=== PATIENT | female | born 1970 | race Caucasian/White ===

== ENCOUNTER → 2019-08-21 | Outpatient (CLI) | payer OTHER ==
[2019-08-21 20:01] LABS: Bilirubin, Urine Neg (Neg); Blood, Urine 1+ (Neg); Glucose Qualitative, Urine Neg (Neg); Ketones, Urine Neg (Neg); Leukocyte Esterase, Urine 3+ (Neg); Nitrite, Urine Neg (Neg); Protein, Urine Neg (Neg); Urobilinogen, Urine NORM (Normal); pH, Urine 6.5 (5.0-8.0)
[2019-08-21 20:12] LABS: Appearance, Urine Hazy (Clear); Color, Urine Yellow (P-Yellow)
[2019-08-21 20:13] LABS: Bacteria Mod /hpf; Squamous Epithelial Cells Mod /hpf (Few); Yeast/Fungi Urine Mod /hpf
== END | disposition home or self-care (01) ==
LOC: LAB 18:47 → LAB SHORT 18:47
PROVIDERS: Registered Nurse
DX: R31.21 Asymptomatic microscopic hematuria (principal)
CPT/HCPCS: 81001; 87086

== ENCOUNTER → 2019-08-28 | Outpatient (CLI) | payer SELFPAY | END | disposition home or self-care (01) | LOC: LAB 19:12 → LAB SHORT 19:12 | DX: R35.0 Frequency of micturition (principal) | CPT/HCPCS: 87086 ==

== ENCOUNTER 2020-09-29 10:30 | Day surgery (SDC) | payer OTHER ==
[~2020-09-29] VITALS: Ht 160 cm; Wt 83.6 kg
[~2020-09-29 10:30] MED LIST: ALBU90OI INH; Aspir 8181 MG PO; Crestor20 MG PO; FURO20 PO; METO25ER PO; NAPR220 PO; NITR.4SL SL; OMEP20ER PO
--- NOTE | 2020-09-29 13:45 | NUR ---
PATIENT RETURNED FROM THE [facility], TR BAND IN PLACE TO THE RIGHT RADIAL WITH 12 ML OF AIR IN THE BAND. MONITOR APPLIED. CALL LIGHT IN REACH. LUCVanessa TRAY SERVED. PATIENT AWAKE AND LEFT KNOW VIA CELL THAT SHE WAS DONE WITH THE PROCEDURE AND BACK IN RECOVERY. POTENTIAL DISCAHRGE TIME IS 1530. RIGHT RADIAL SITE SOFT, NO BLEEDING NOTED.
--- NOTE | 2020-09-29 14:39 | NUR ---
BEGAN REMOVING AIR FROM THE TR BAND, NO BLEEDING NOTED. NO PAIN, NO HEMATOMA.
--- NOTE | 2020-09-29 14:57 | NUR ---
ALL AIR REMOVED FROM THE TR BAND. NO BLEEDING, NO HEMATOMA.
--- NOTE | 2020-09-29 15:07 | NUR ---
PATIENT UP TO THE RESTROOM. OFF MONITOR.
--- NOTE | 2020-09-29 15:36 | NUR ---
PIV REMOVED AND PRESSURE DRESSING APPLIED. TR BAND REMOVED AND RIGHT RADIAL SITE CLEANED. CLOTH DOT APPLIED AND AND WHITE BOARD REAPPLIED TO REMIND PATIENT TO NOT PLACE ANY EXCESSIVE PRESSURE ON THE WRIST. PATIENT VERBALIZED UNDERSTANDING OF DISCHARGE INSTRUCTIONS AND HAS NO FURTHER QUESTIONS. PATIENT DRESSED AND ALL BELONGINGS GATHERED. TEENA CHAIRED TO [facility] AND MET WITH , HER [employer].
== END 2020-09-29 22:48 | disposition home or self-care (01) ==
LOC: MHTC 10:30
PROC: 4A023N7 Measurement of Cardiac Sampling and Pressure, Left Heart, Percutaneous Approach (ICD-10-PCS; principal; 2020-09-29)
PROC: B2111ZZ Fluoroscopy of Multiple Coronary Arteries using Low Osmolar Contrast (ICD-10-PCS; principal; 2020-09-29)
DX: R07.9 Chest pain, unspecified (principal); R94.39 Abnormal result of other cardiovascular function study; R06.00 Dyspnea, unspecified; I10 Essential (primary) hypertension; E78.5 Hyperlipidemia, unspecified; E66.9 Obesity, unspecified; Z79.82 Long term (current) use of aspirin; Z79.899 Other long term (current) drug therapy; Z88.0 Allergy status to penicillin; Z88.2 Allergy status to sulfonamides; Z20.822 Contact with and (suspected) exposure to COVID-19
CPT/HCPCS: 76937; 93454; 99152; 99153; C1769; C1894; J1644; J2250; J3010; J7030; J7050; Q9967

== ENCOUNTER 2020-12-17 07:52 | Day surgery (SDC) | payer OTHER ==
[~2020-12-17] VITALS: Ht 157.5 cm; Wt 84.0 kg
[2020-12-17] MEDS ORDERED: SYMBICORT 160-4.6 GM (08:16)
--- NOTE | 2020-12-17 08:19 | NUR ---
12/17/20 0819 Ary Rodríguez CALL LIGHT WITHIN REACH
== END 2020-12-17 09:24 | disposition home or self-care (01) ==
LOC: ORSCSDS 07:52
PROVIDERS: Internal Medicine Gastroenterology
PROC: 0DBN8ZX Excision of Sigmoid Colon, Via Natural or Artificial Opening Endoscopic, Diagnostic (ICD-10-PCS; principal; 2020-12-17 09:00)
PROC: 0DBH8ZX Excision of Cecum, Via Natural or Artificial Opening Endoscopic, Diagnostic (ICD-10-PCS; principal; 2020-12-17 09:00)
DX: Z12.11 Encounter for screening for malignant neoplasm of colon (principal); D12.0 Benign neoplasm of cecum; K63.5 Polyp of colon; E78.5 Hyperlipidemia, unspecified; G47.33 Obstructive sleep apnea (adult) (pediatric); Z79.899 Other long term (current) drug therapy
CPT/HCPCS: 88305; J2704; J7120

== ENCOUNTER → 2024-12-05 | Outpatient (CLI) | payer OTHER ==
[~2024-12-05] MED LIST changes: +SYMBICORT 160-4.6 GM
[2024-12-05 19:53] LABS: BASOPHILS ABSOLUTE AUTO 0.04 K/mm3 (0.00-0.23); BASOPHILS PERCENT AUTO 1 % (0-2); EOSINOPHILS ABSOLUTE AUTO 0.12 K/mm3 (0.00-0.68); EOSINOPHILS PERCENT AUTO 2 % (0-6); Hematocrit 41.6 % (33.0-51.0); Hemoglobin 14.2 g/dL (11.5-16.0); IMMATURE GRAN ABSOLUTE AUTO 0.01 K/mm3 (0.00-0.10); IMMATURE GRAN PERCENT AUTO 0 % (0-1); LYMPHOCYTES ABSOLUTE AUTO 1.68 K/mm3 (0.84-5.20); LYMPHOCYTES PERCENT AUTO 32 % (21-46); MONOCYTES ABSOLUTE AUTO 0.49 K/mm3 (0.16-1.47); MONOCYTES PERCENT AUTO 9 % (4-13); Mean Corpuscular HGB 30.1 pg (26.0-34.0); Mean Corpuscular HGB Conc 34.1 g/dL (31.5-36.5); Mean Corpuscular Volume 88 fL (80-100); Mean Platelet Volume 9.7 fL (9.1-12.4); NEUTROPHILS ABSOLUTE AUTO 2.99 K/mm3 (1.96-9.15); NEUTROPHILS PERCENT AUTO 56 % (41-73); Platelet Count 264 K/mm3 (150-400); RDW Coefficient Variation 11.9 % (11.7-14.2); RDW Standard Deviation 38.2 fL (35.1-46.3); Red Blood Cell Count 4.72 M/mm3 (3.80-5.20); White Blood Cell Count 5.33 K/mm3 (4.00-11.30)
[2024-12-05 21:04] LABS: Alanine Aminotransfer (ALT/SGP 37 U/L (12-78); Albumin, Blood 4.1 g/dL (3.4-5.0); Albumin/Globulin Ratio 1.3 (0.8-1.8); Alk Phos 57 U/L (50-136); Anion Gap 10 mmol/L (3-11); Aspartate Aminotrans (AST/SGOT 14 U/L (12-37); Bilirubin, Total 0.4 mg/dL (0.1-1.0); Blood Urea Nitrogen 15 mg/dL (8-24); Bun/Creatinine Ratio 16.8 (12.0-20.0); CO2, Blood 26 mmol/L (21-32); Calcium, Blood 9.4 mg/dL (8.5-10.1); Chloride, Blood 106 mmol/L (98-108); Cholesterol 152 mg/dL (50-200); Ferritin, Serum 132 ng/mL (8-252); Globulin, Blood 3.2 g/dL (2.2-4.0); Glomerular Filtration Rate 76 (60-); Glucose, Blood 94 mg/dL (70-99); HDL Cholesterol 50 mg/dL (>39); Iron Serum 87 ug/dL (50-170); LDL/HDL RATIO 1.5; Low Density Lipoprotein Chol 76 mg/dL (0-110); Potassium, Blood 3.9 mmol/L (3.5-5.5); Sodium, Blood 138 mmol/L (136-145); Total Iron Binding Capacity 363 ug/dL (250-450); Total Protein, Blood 7.3 g/dL (6.4-8.2); Triglycerides 129 mg/dL (30-160); Very Low Density Lipoprot Chol 25 mg/dL (6-32)
== END ==
LOC: LAB SHORT 19:08 → LAB 19:08
PROVIDERS: Student in an Organized Health Care Education/Training Program
DX: E78.5 Hyperlipidemia, unspecified (principal); R53.82 Chronic fatigue, unspecified
CPT/HCPCS: 80053; 80061; 82728; 83036; 83540; 83550; 84443; 85025